=== PATIENT | female | born 1995 | race Caucasian/White ===

== ENCOUNTER 2017-09-17 21:04 | Emergency (ER) | payer OTHER, SELFPAY ==
[~2017-09-17] VITALS: Ht 162.6 cm; Wt 90.7 kg
[~2017-09-17 21:04] MED LIST: ALL DAY ALLERGY10 M3 PO; CELEBREX 200 M200 M1 PO; FLONASE 0.05%50 MCG NASAL; NAPROSYN500 MG PO; TRAMADOL 50 MG50 MG PO; VENTOLIN HFA 1818 GM INH
[2017-09-17] MEDS ORDERED: CELEXA10 MG PO (21:16)
[2017-09-17] MEDS ORDERED: BIRTH CONTROL (21:16)
[2017-09-17] MEDS ORDERED: IBUPROFEN 600600 M1 PO (21:20)
[2017-09-17] MEDS ORDERED: MUCINEX600 MG PO (21:21)
[2017-09-17] MEDS ORDERED: TYLENOL EXTRA500 MG PO (21:21)
[2017-09-17 21:46] LABS: INFLUENZA B ANTIGEN None Detected (None Detect)
[2017-09-17] MEDS ORDERED: PROAIR HFA8.5 GM INH (22:16)
[2017-09-17] MEDS ORDERED: PROMETHAZINE V473 ML PO (22:16)
[2017-09-17] MEDS ORDERED: TESSALON PERLE100 MG PO (22:16)
[2017-09-17] MEDS ORDERED: OSELB75 PO (22:16)
[2017-09-17 22:25] VITALS: BP 123/75
== END 2017-09-17 22:26 | disposition home or self-care (01) ==
LOC: M.ERS 21:04
PROVIDERS: Physician Assistant
DX: J09.X2 Influenza due to identified novel influenza A virus with other respiratory manifestations (principal); F41.9 Anxiety disorder, unspecified; J45.909 Unspecified asthma, uncomplicated; Z90.89 Acquired absence of other organs